=== PATIENT | female | born 1985 | race Caucasian/White ===

== ENCOUNTER → 2016-10-13 | Outpatient (REF) ==
--- NOTE | 2016-10-13 11:19 | REP ---
Cervical spine series: Limited study, three views. History: Degenerative disc disease. Findings: There is a right-sided ventriculoperitoneal shunt catheter noted coursing through the soft tissues of the right neck with some calcification adjacent to the catheter. A linear metallic density is seen overlying one of the clavicles on the lateral radiograph. There is a dextroconvex cervical curvature on the AP view. Open-mouth odontoid view is unremarkable. Lateral radiograph shows straightening. Vertebral body heights are preserved. Disc spaces are maintained. 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 Ventriculoperitoneal shunt catheter noted in the soft tissues of the right neck. Metallic density superimposed on one of the clavicles on the lateral radiograph, uncertain etiology. Otherwise negative. Signed by Bonilla Real MD 10/13/2016 12:57 P
== END ==
LOC: M SMT 09:48
PROVIDERS: ATTEND Internal Medicine
DX: M54.5 Low back pain (principal)

== ENCOUNTER → 2018-12-12 | Outpatient (REF) | payer OTHER ==
[2018-12-15 19:25] LABS: HPV HYBRID CAPTURE II Negative (Negative)
== END ==
LOC: M LAB LCGH 12:06
PROVIDERS: ATTEND Nurse Practitioner Family
DX: Z12.4 Encounter for screening for malignant neoplasm of cervix (principal)

== ENCOUNTER 2021-11-07 23:31 | Emergency (ER) | payer OTHER ==
[~2021-11-07] VITALS: Ht 172.7 cm; Wt 111.0 kg
[2021-11-08 00:39] LABS: HEMATOCRIT 37.8 % (36.0-47.0); HEMOGLOBIN 12.4 g/dl (12.0-15.5); MEAN CORPUSCULAR HGB CONC 32.8 g/dl (32.0-36.5); MEAN CORPUSCULAR VOLUME 85.3 fl (80.0-96.0); PLATELET COUNT, AUTOMATED 394 10^3/uL (150-450); RED BLOOD COUNT 4.43 10^6/uL (4.00-5.40)
[2021-11-08 01:08] LABS: ACETAMINOPHEN LEVEL < 2.0 UG/ML (10.0-30.0); ALBUMIN 3.3 GM/DL (3.2-5.2); ALT/SGPT 25 U/L (12-78); BILIRUBIN,DIRECT < 0.1 MG/DL (0.0-0.2); BILIRUBIN,TOTAL 0.1 MG/DL (0.2-1.0); BLOOD UREA NITROGEN 13 MG/DL (7-18); CALCIUM LEVEL 9.8 MG/DL (8.5-10.1); CARBON DIOXIDE LEVEL 25 MEQ/L (21-32); CHLORIDE LEVEL 105 MEQ/L (98-107); ETHYL ALCOHOL (ETHANOL) 0.005 % (0.000-0.010); GLOMERULAR FILTRATION RATE > 60.0 (>60); GLUCOSE, FASTING 213 MG/DL (70-100); SALICYLATE LEVEL < 1.7 MG/DL (5.0-30.0); SODIUM LEVEL 137 MEQ/L (136-145); TOTAL PROTEIN 7.2 GM/DL (6.4-8.2)
[2021-11-08 03:00] LABS: AMPHETAMINES LEVEL URINE POSITIVE (NEGATIVE); BARBITURATES URINE NEGATIVE (NEGATIVE); BENZODIAZEPINES URINE NEGATIVE (NEGATIVE); CANNABINOIDS URINE POSITIVE (NEGATIVE); COCAINE METABOLITE URINE POSITIVE (NEGATIVE); METHADONE URINE NEGATIVE (NEGATIVE); OPIATES URINE NEGATIVE (NEGATIVE); PHENCYCLIDINE URINE NEGATIVE (NEGATIVE)
[2021-11-08 10:07] LABS: RSV AMPLIFICATION NEGATIVE (NEGATIVE)
[2021-11-08] MEDS ORDERED: VITA250T4 PO (16:48)
[2021-11-08] MEDS ORDERED: ZINC220CA PO (16:48)
[2021-11-08] MEDS ORDERED: VITATAB73 PO (16:48)
[2021-11-08] MEDS ORDERED: HOME MED LIST COMPLETE! XX SCH (16:50)
[2021-11-08] MEDS ORDERED: NICOTINE 21MG/24HR 1 EA TRANSDERMAL TD ONE (18:05)
[2021-11-09] MEDS: NICOTINE 21MG/24HR 1 EA TRANSDERMAL TD SCH (18:11)
[2021-11-10] MEDS: NICOTINE 21MG/24HR 1 EA TRANSDERMAL TD SCH (09:02)
[2021-11-10 12:08] LABS: RSV AMPLIFICATION NEGATIVE (NEGATIVE)
[2021-11-10 16:12] VITALS: BP 132/79
== END 2021-11-10 16:36 | disposition home or self-care (01) ==
LOC: M ED 23:31
DX: R45.851 Suicidal ideations (principal); F29 Unspecified psychosis not due to a substance or known physiological condition; F32.A Depression, unspecified; R00.0 Tachycardia, unspecified; F17.200 Nicotine dependence, unspecified, uncomplicated; F15.10 Other stimulant abuse, uncomplicated; Z91.041 Radiographic dye allergy status; Z88.1 Allergy status to other antibiotic agents; Z79.899 Other long term (current) drug therapy

== ENCOUNTER 2023-09-09 10:43 | Emergency (ER) | payer OTHER ==
[~2023-09-09] VITALS: Ht 172.7 cm; Wt 100.0 kg
[~2023-09-09 10:43] MED LIST: VITA250T27 PO; VITATAB73 PO; ZINC220CA PO
[2023-09-09] MEDS ORDERED: METF500T13 (11:01)
[2023-09-09 11:33] LABS: HEMATOCRIT 38.9 % (36.0-47.0); HEMOGLOBIN 12.4 g/dl (12.0-15.5); MEAN CORPUSCULAR HEMOGLOBIN 27.3 pg (27.0-33.0); MEAN CORPUSCULAR HGB CONC 31.9 g/dl (32.0-36.5); MEAN CORPUSCULAR VOLUME 85.7 fl (80.0-96.0); PLATELET COUNT, AUTOMATED 336 10^3/uL (150-450); RED BLOOD COUNT 4.54 10^6/uL (4.00-5.40); WHITE BLOOD COUNT 12.4 10^3/uL (4.0-10.0)
[2023-09-09 12:01] LABS: CPK CREATINE PHOSPHOKINASE 29 U/L (34-145)
[2023-09-09 12:02] LABS: BLOOD UREA NITROGEN 8 MG/DL (9-23); CALCIUM LEVEL 9.1 MG/DL (8.5-10.1); CARBON DIOXIDE LEVEL 28 MMOL/L (20-31); CHLORIDE LEVEL 103 MMOL/L (98-107); CK-MB VALUE MASS < 1.0 NG/ML (<3.6); CREATININE FOR GFR 0.42 MG/DL (0.55-1.30); GLOMERULAR FILTRATION RATE > 60.0 (>60); GLUCOSE, FASTING 142 MG/DL (60-100); MAGNESIUM LEVEL 1.6 MG/DL (1.8-2.4); MB/CK RELATIVE INDEX 3.44 (< OR =4); SODIUM LEVEL 138 MMOL/L (136-145)
[2023-09-09 12:03] LABS: THYROID STIMULATING HORMONE 0.995 uIU/ML (0.55-4.78)
[2023-09-09 12:04] LABS: HCG, SERUM QUALITATIVE NEGATIVE (NEGATIVE)
[2023-09-09 12:51] LABS: ATYPICAL LYMPH 3 % (0-5); BASOPHILS 4 % (0-1); EOSINOPHILS 1 % (0-3); LYMPHOCYTES 17 % (16-44); METAMYELOCYTES 1 % (0-0); MONOCYTES 5 % (0-5); MYELOCYTES 3 % (0-0); NEUTROPHILS 62 % (28-66)
[2023-09-09 12:52] LABS: PLATELET ESTIMATE NORMAL (NORMAL)
[2023-09-09 13:02] LABS: CK-MB VALUE MASS < 1.0 NG/ML (<3.6)
[2023-09-09 13:18] LABS: CPK CREATINE PHOSPHOKINASE 36 U/L (34-145); MB/CK RELATIVE INDEX 2.77 (< OR =4)
[2023-09-09] MEDS: MAG SULF 1GM/100ML (MAG RUN) 1 GM in IV 1 EA IV ONE (13:22)
[2023-09-09] MEDS ORDERED: ZITHTAB PO (17:43)
[2023-09-09] MEDS ORDERED: ESSE250T PO (17:43)
[2023-09-09] MEDS: AZITHROMYCIN 250MG TABLET PO ONE (18:23)
[2023-09-09] MEDS: NS 500 ML IV ONE (18:23)
[2023-09-09 19:17] VITALS: BP 148/66; TEMP 97; O2SAT 97
== END 2023-09-09 19:20 | disposition home or self-care (01) ==
LOC: M ED 10:43
DX: R55 Syncope and collapse (principal); J02.0 Streptococcal pharyngitis; E83.42 Hypomagnesemia; V48.0XXA Car driver injured in noncollision transport accident in nontraffic accident, initial encounter; R59.0 Localized enlarged lymph nodes; I49.3 Ventricular premature depolarization; E11.9 Type 2 diabetes mellitus without complications; Z87.820 Personal history of traumatic brain injury; Z91.041 Radiographic dye allergy status; Z88.1 Allergy status to other antibiotic agents; Z88.8 Allergy status to other drugs, medicaments and biological substances; Y92.410 Unspecified street and highway as the place of occurrence of the external cause; Y93.89 Activity, other specified; Y99.9 Unspecified external cause status
CPT/HCPCS: 70450; 72125; 75809; 76536; 80047; 80048; 82550; 82553; 83735; 84443; 84484; 84702; 84703; 85025; 87880; 93005; 93041; 94760; 96374; 99285; J3475